=== PATIENT | male | born 1970 | race Caucasian/White ===

== ENCOUNTER → 2016-03-21 | Outpatient (CLI) | payer MEDICARE, MEDICAID ==
[~2016-03-21] MED LIST: ALPR1TAB PO; ALPR1TAB2 PO; CLON1TAB3 PO; CMBV14CC IH; GABA600T PO; HYDR-3702 PO; HYDR-3754 PO; IBUP-30 PO; OLAN15TA3 PO; OXYC1TAB6 PO; OXYC1TAB87 PO; PANT40TA2 PO; PRM25T PO; RANI150T15 PO; TRIA10.8 NS; TRM50T PO; [UNRECOGNIZED DRUG - CODE] PO
--- NOTE | 2016-03-21 14:53 | Diagnostic Imaging Report ---
EXAMINATION: Cervical spine, 4 views. COMPARISON: CT cervical spine July 13, 2011. HISTORY: 45-year-old male, neck and right shoulder pain. FINDINGS: The lateral masses of C1 are normally aligned relative to C2. There is straightening of the normal cervical lordosis. Additional alignment of the cervical spine is grossly unremarkable. There is no prevertebral soft tissue swelling. There is no identified acute fracture of the cervical spine. The disc heights are well-preserved. There are no prominent disc, uncovertebral, or facet degenerative changes. IMPRESSION: 1. Straightening of the normal cervical lordosis. 2. Otherwise unremarkable radiographs of the cervical spine. Dictated by: Dictated on workstation # [id number]
== END ==
LOC: RAD 13:29
PROVIDERS: ATTEND Family Medicine
DX: M25.511 Pain in right shoulder (principal)
CPT/HCPCS: 72040